=== PATIENT | female | born 1950 | race Caucasian/White ===

== ENCOUNTER 2023-02-27 04:07 | Inpatient (IN) | payer OTHER ==
[~2023-02-27] VITALS: Ht 167.6 cm; Wt 95.5 kg
[2023-02-27] MEDS ORDERED: LOSA50 PO (04:21)
[2023-02-27 04:41] LABS: BASOPHILS ABSOLUTE AUTO 0.07 K/mm3 (0.00-0.23); BASOPHILS PERCENT AUTO 1 % (0-2); EOSINOPHILS ABSOLUTE AUTO 0.11 K/mm3 (0.00-0.68); EOSINOPHILS PERCENT AUTO 2 % (0-6); Hematocrit 37.2 % (33.0-51.0); Hemoglobin 12.5 g/dL (11.5-16.0); IMMATURE GRAN ABSOLUTE AUTO 0.02 K/mm3 (0.00-0.10); IMMATURE GRAN PERCENT AUTO 0 % (0-1); LYMPHOCYTES ABSOLUTE AUTO 1.21 K/mm3 (0.84-5.20); LYMPHOCYTES PERCENT AUTO 17 % (21-46); MONOCYTES ABSOLUTE AUTO 0.86 K/mm3 (0.16-1.47); MONOCYTES PERCENT AUTO 12 % (4-13); Mean Corpuscular HGB 30.2 pg (26.0-34.0); Mean Corpuscular HGB Conc 33.6 g/dL (31.5-36.5); Mean Corpuscular Volume 90 fL (80-100); Mean Platelet Volume 9.6 fL (9.1-12.4); NEUTROPHILS ABSOLUTE AUTO 4.84 K/mm3 (1.96-9.15); NEUTROPHILS PERCENT AUTO 68 % (41-73); Platelet Count 332 K/mm3 (150-400); RDW Coefficient Variation 14.7 % (11.7-14.2); RDW Standard Deviation 48.5 fL (35.1-46.3); Red Blood Cell Count 4.14 M/mm3 (3.80-5.20); White Blood Cell Count 7.11 K/mm3 (4.00-11.30)
[2023-02-27 05:24] LABS: Albumin, Blood 3.4 g/dL (3.4-5.0); Albumin/Globulin Ratio 1.2 (0.8-1.8); Bilirubin, Total 0.4 mg/dL (0.1-1.0); Bun/Creatinine Ratio 31.1 (12.0-20.0); Calcium, Blood 9.2 mg/dL (8.5-10.1); Creatinine, Blood 1.22 mg/dL (0.40-1.00); Globulin, Blood 2.8 g/dL (2.2-4.0); Potassium, Blood 4.6 mmol/L (3.5-5.5); Total Protein, Blood 6.2 g/dL (6.4-8.2)
[2023-02-27 06:34] LABS: Influenza A, PCR NEGATIVE (NEGATIVE); Influenza B, PCR NEGATIVE (NEGATIVE); Resp Syncytial Virus, PCR NEGATIVE (NEGATIVE); SARS-Cov-2 (COVID-19) PCR, MMC NEGATIVE (NEGATIVE)
[2023-02-27 15:57] VITALS: BP 159/98
--- NOTE | 2023-02-27 17:53 | NUR ---
ADMISSION AND SHIFT SUMMARY PATIENT ADMITTED THIS AFTERNOON TO MEDICAL FLOOR. PATIENT ALERT AND INTERACTIVE. VERY TALKATIVE AND NEEDING REDIRECTION TO STAY FOCUSED ON ADMISSION. PATIENT DENIES ANY CHEST PAIN. CONTINUES TO HAVE SOB WITH AMBULATION. PATIENT HAS HEALING SHINGLES LEISIONS ALONG L BREAST LINE. PATIENT TREATED FOR SHINGLES PRIOR TO THIS ADMISSION. PATIENT INDEPENDENT IN THE ROOM. HX OF L KNEE REPLACEMENT AND STIFFNESS IN THAT LEG. PATIENT DOES NOT USE ANY ASSISTIVE DEVICES BUT HAS THEM AVAILABLE IN THE HOME FOR FUTURE NEED. PATIENT LIVES ALONE BUT HAS FAMILY IN THE AREA. PATIENT IS HOPEFUL SHE WILL GET TO GO HOME TOMORROW IF THINGS CONTINUE TO IMPROVE. PATIENT WEARING COMPRESSION STALKINGS FOR BLE EDEMA. PATIENT STATES IT WAS REALLY BAD WHEN SHE CAME IN BUT IS IMPROVING SINCE LASIX DOSE. EDUCATION PROVIDED RELATED TO LOW SODIUM DIET AND FLUID INTAKE.
[2023-02-27 19:51] VITALS: BP 148/96
[2023-02-28 03:57] VITALS: BP 143/92
[2023-02-28 05:34] LABS: Hematocrit 38.3 % (33.0-51.0); Hemoglobin 12.8 g/dL (11.5-16.0); Mean Corpuscular HGB 29.8 pg (26.0-34.0); Mean Corpuscular HGB Conc 33.4 g/dL (31.5-36.5); Mean Corpuscular Volume 89 fL (80-100); Mean Platelet Volume 9.4 fL (9.1-12.4); Platelet Count 297 K/mm3 (150-400); RDW Coefficient Variation 14.7 % (11.7-14.2); RDW Standard Deviation 47.3 fL (35.1-46.3); White Blood Cell Count 5.77 K/mm3 (4.00-11.30)
[2023-02-28 06:05] LABS: Calcium, Blood 9.3 mg/dL (8.5-10.1); Creatinine, Blood 1.26 mg/dL (0.40-1.00); Potassium, Blood 4.3 mmol/L (3.5-5.5)
--- NOTE | 2023-02-28 07:19 | NUR ---
NOC SHIFT SUMMARY: INDEPENDENT. PATIENT WOULD LIKE TO GO HOME TODAY. [facility]. FOLLOW UP IS NEEDED. NEW CHF DIAGNOSIS.
[2023-02-28 07:33] VITALS: BP 144/94
[2023-02-28 15:20] VITALS: BP 115/76
--- NOTE | 2023-02-28 18:15 | NUR ---
SHIFT SUMMARY NO ACUTE CHANGES. PT AOX4 AND INDEPENDENT IN THE ROOM. NO ISSUES THIS SHIFT. WAITING ON THE ECHO RESULTS, PENDING DISCHARGE. THE ECHO WAS NOT READ TODAY. POSSIBLE DC TOMORROW. CALL LIGHT WITHIN REACH, BED IN THE LOWEST POSITION. WILL REPORT TO ONCOMING NURSE.
[2023-02-28 19:49] VITALS: BP 114/68
[2023-03-01 04:26] VITALS: BP 156/94
[2023-03-01 04:47] LABS: Bun/Creatinine Ratio 24.6 (12.0-20.0); Calcium, Blood 9.4 mg/dL (8.5-10.1); Creatinine, Blood 1.3 mg/dL (0.40-1.00); Potassium, Blood 4.8 mmol/L (3.5-5.5)
--- NOTE | 2023-03-01 07:03 | NUR ---
NOC SHIFT SUMMARY NO NEW ISSUES OVERNIGHT. WAITING ON ECHO TO BE READ. POSSIBLE DISCHARGE TO HOME TODAY. INDEPENDENT IN THE ROOM. A&O X4.
[2023-03-01 07:30] VITALS: BP 146/85
[2023-03-01] MEDS ORDERED: FURO40 PO (12:58)
[2023-03-01] MEDS ORDERED: VITAMIN D31000 UNI1 PO (12:58)
[2023-03-01] MEDS ORDERED: JARDIANCE10 MG PO (12:59)
--- NOTE | 2023-03-01 14:45 | NUR ---
DISCHARGE NOTE PT DISCHARGED TO HOME, PICKED UP BY HER GRANDSON. IV REMOVED, TELE RETURNED. DISCHARGE INFORMATION AND PAPERWORK PROVIDED TO THE PT. MEDICATIONS FAXED TO THE PHARMACY OF HER CHOICE. PERSONAL BELONGINGS RETURNED.
== END 2023-03-01 14:30 | disposition home or self-care (01) | DRG 291 ==
LOC: ER 04:07 → ERHOLD 10:56 → MEDS 10:56 → ENPENDDIS 03-01 12:28 → MEDS 03-01 14:30
PROVIDERS: Emergency Medicine; Internal Medicine; ADMIT Internal Medicine
DX: I13.0 Hypertensive heart and chronic kidney disease with heart failure and stage 1 through stage 4 chronic kidney disease, or unspecified chronic kidney disease (principal); I50.33 Acute on chronic diastolic (congestive) heart failure; J96.01 Acute respiratory failure with hypoxia; I27.20 Pulmonary hypertension, unspecified; N18.30 Chronic kidney disease, stage 3 unspecified; R77.8 Other specified abnormalities of plasma proteins; K21.9 Gastro-esophageal reflux disease without esophagitis; Z20.822 Contact with and (suspected) exposure to COVID-19; G62.9 Polyneuropathy, unspecified; Z96.652 Presence of left artificial knee joint; Z79.899 Other long term (current) drug therapy
CPT/HCPCS: 0241U; 36415; 71045; 80048; 80053; 83880; 84484; 85025; 85027; 85379; 93005; 93010; 93306; 96374; 99285-25; A9270; J1650; J1940

== ENCOUNTER 2024-03-30 06:09 | Inpatient (IN) | payer OTHER ==
[~2024-03-30] VITALS: Ht 167.6 cm; Wt 92.7 kg
[2024-03-30] VITALS (7 sets, daily range): BP systolic 107–175; BP diastolic 84–94
[~2024-03-30 06:09] MED LIST: FURO40 PO; JARDIANCE10 MG PO; LOSA50 PO; VITAMIN D31000 UNI1 PO
[2024-03-30] MEDS ORDERED: CeFAZolin Sodium 2,000 MG VIAL ONE (06:29)
[2024-03-30] MEDS ORDERED: NS 100 ML IV ONE (06:29)
[2024-03-30] MEDS ORDERED: Lactated Ringer's 1,000 ML IV ONE ×2 (06:29→07:06)
[2024-03-30] MEDS ORDERED: Tranexamic Acid 100 ML IV ONE ×3 (06:37→16:55)
[2024-03-30] MEDS ORDERED: Acetaminophen 500 MG Tab ONE (06:37)
[2024-03-30] MEDS ORDERED: Chlorhexidine Mouth Care 15 ML UDC MT SCH (06:45)
[2024-03-30] MEDS ORDERED: MULVITA (06:45)
[2024-03-30] MEDS ORDERED: Vitamin B Comple1 EA (06:46)
[2024-03-30] MEDS ORDERED: ZINC15 (06:46)
[2024-03-30] MEDS ORDERED: EPINEPhrine HCl 1 MG/ML 1ML Amp ONE (06:58)
[2024-03-30] MEDS ORDERED: Bupivacaine 0.5% HCl 5 MG/ML 30MLVIAL ONE (06:58)
[2024-03-30] MEDS ORDERED: Dexamethasone Sod Phos 10 MG/ML 1ML VIAL ONE (06:58)
[2024-03-30] MEDS ORDERED: propofoL 20 ML IV ONE (06:59)
[2024-03-30] MEDS ORDERED: Midazolam HCl 1MG / ML 2ML Vial ONE (06:59)
[2024-03-30] MEDS ORDERED: OxyCODONE HCL 10 MG TABCR ONE (07:01)
--- NOTE | 2024-03-30 07:17 | NUR ---
03/30/24 0717 Carol Pop 4X GEL PADS (1 UNDER COCCYX, 1 UNDER EACH SAFETY STRAP, 1 UNDER LEFT ARM) STANDARD FOAM FACEMASK
--- NOTE | 2024-03-30 08:09 | NUR ---
03/30/24 0809 Xiomara Valencia REVIEWED PT CHART AND DUE TO HER SEVERE PULMONARY HYPERTENSION, DID NOT WANT TO GO FORWARD WITH THIS CASE IN AN OUTPATIENT SETTING. ANESTHESIA CHANGED TO WHO WILL PROCEED WITH THIS CASE.
[2024-03-30] MEDS ORDERED: Phenylephrine HCl 100 MCG/ML-NS 10MLSYR (1MG/10ML) ONE (08:12)
[2024-03-30] MEDS ORDERED: Rocuronium Bromide 10 MG/ML 5ML Injection IV ONE (08:46)
[2024-03-30] MEDS ORDERED: Ondansetron HCl 2 MG / ML 2ML Vial ONE (09:23)
[2024-03-30] MEDS ORDERED: Sugammadex Sodium 200 MG/2ML SDV (100 MG/ML) ONE (09:59)
--- NOTE | 2024-03-30 10:47 | NUR ---
03/30/24 Nakita Milton PT DESATTED TO 89% ON RA. THIS RN PUT PT ON 5L VIA NC. PT'S O2 LEVEL AT 96-97%. PT RECEIVED A BLOCK BEFORE THE PRECEDURE. WCTM. VSS. PT DENIES ANY PAIN OR NAUSEA.
[2024-03-30] MEDS ORDERED: Promethazine HCl 25 MG Tab PO PRN (12:15)
[2024-03-30] MEDS ORDERED: DiphenhydrAMINE HCL 25 MG Cap PO PRN (12:15)
[2024-03-30] MEDS ORDERED: HYDROmorphone HCl/Pf 1MG SYR IV PRN (12:15)
[2024-03-30] MEDS ORDERED: Bisacodyl 10 MG Supp PR PRN (12:15)
[2024-03-30] MEDS ORDERED: FLU VACC TS2024-25(6MOS UP)/PF 45 MCG/0.5 ML SYRINGE IM ONE (12:20)
[2024-03-30] MEDS ORDERED: Ondansetron HCl 2 MG / ML 2ML Vial IV PRN (12:20)
[2024-03-30] MEDS ORDERED: Lactated Ringer's 1,000 ML IV SCH (12:20)
[2024-03-30] MEDS ORDERED: OxyCODONE HCL 5 MG TAB PO PRN ×2 (12:20→12:25)
[2024-03-30] MEDS ORDERED: Magnesium Hydroxide Conc 10 ML UDC PO PRN (12:20)
[2024-03-30] MEDS ORDERED: Metoclopramide HCl 5MG / ML 2ML Vial IV PRN (12:20)
[2024-03-30] MEDS ORDERED: Prochlorperazine Edisylate 10 mg Vial IV PRN (12:25)
[2024-03-30] MEDS ORDERED: Ketorolac Tromethamine 15mg Vial IV SCH (13:00)
--- NOTE | 2024-03-30 14:07 | NUR ---
PATIENT TO ROOM AT 1340 FROM [facility] VIA WC. A&O. SBA TO BR, VOIDED 300 CC CLEAR YELLOW URINE. BACK TO BED. DENIES PAIN, NAUSEA, CP,SOB. R ARM IN IMMOBILIZER, MOVES FINGERS WHICH ARE WARM, CIRC CHECKS WNL. ORIENTED TO ROOM, CALL LIGHT. VSS. POLAR PACK IN PLACE TO R SHOULDER. NO C/O.
[2024-03-30] MEDS ORDERED: Acetaminophen 500 MG Tab PO SCH (16:00)
[2024-03-30] MEDS ORDERED: CeFAZolin Sodium 2,000 MG in NS 100 ML IV SCH (16:00)
--- NOTE | 2024-03-30 18:38 | NUR ---
SUMMARY: NO ACUTE CHANGE SINCE POST OP. VSS, A/O. SURGICAL SITE WNL. PT HAS DENIED PAIN. UP TO VOID AND EATING. ABX INFUSED. PT USING CALL LIGHT
[2024-03-30] MEDS ORDERED: Docusate Sodium 100 MG Cap PO SCH (21:00)
[2024-03-31 00:01] VITALS: BP 163/88
[2024-03-31 03:56] VITALS: BP 160/88
[2024-03-31 05:00] LABS: BASOPHILS ABSOLUTE AUTO 0.03 K/mm3 (0.00-0.23); BASOPHILS PERCENT AUTO 0 % (0-2); EOSINOPHILS ABSOLUTE AUTO 0.08 K/mm3 (0.00-0.68); EOSINOPHILS PERCENT AUTO 1 % (0-6); Hematocrit 34.6 % (33.0-51.0); Hemoglobin 10.9 g/dL (11.5-16.0); IMMATURE GRAN ABSOLUTE AUTO 0.02 K/mm3 (0.00-0.10); IMMATURE GRAN PERCENT AUTO 0 % (0-1); LYMPHOCYTES ABSOLUTE AUTO 0.99 K/mm3 (0.84-5.20); LYMPHOCYTES PERCENT AUTO 13 % (21-46); MONOCYTES PERCENT AUTO 11 % (4-13); Mean Corpuscular HGB 29.6 pg (26.0-34.0); Mean Corpuscular HGB Conc 31.5 g/dL (31.5-36.5); Mean Corpuscular Volume 94 fL (80-100); Mean Platelet Volume 9.7 fL (9.1-12.4); NEUTROPHILS ABSOLUTE AUTO 5.73 K/mm3 (1.96-9.15); NEUTROPHILS PERCENT AUTO 75 % (41-73); Platelet Count 272 K/mm3 (150-400); RDW Coefficient Variation 14.2 % (11.7-14.2); RDW Standard Deviation 49.2 fL (35.1-46.3); Red Blood Cell Count 3.68 M/mm3 (3.80-5.20); White Blood Cell Count 7.65 K/mm3 (4.00-11.30)
[2024-03-31 05:21] LABS: Bun/Creatinine Ratio 26.2 (12.0-20.0); Calcium, Blood 9.3 mg/dL (8.5-10.1); Creatinine, Blood 1.6 mg/dL (0.40-1.00); Magnesium, Blood 2.1 mg/dL (1.6-2.4); Potassium, Blood 4.5 mmol/L (3.5-5.5)
--- NOTE | 2024-03-31 05:48 | NUR ---
SHIFT SUMMARY PT POD 0 RIGHT TOTAL SHOULDER, RIGHT ARM IS IN SLING. PT REPORTS SOME RESIDUAL NUMBNESS TO RIGHT SHOULDER. FULL SENSATION IN RIGHT HAND ABLE TO WIGGLE FINGERS. SKIN WARM, CAP REFILL WNL. SURGICAL SITE WITH WOUND GLUE C/D/I. VITALS STABLE. PT AMBULATING, VOIDING AND TOLERATING PO INTAKE. BED IN LOWEST POSITION, CALL LIGHT WITHIN REACH.
--- NOTE | 2024-03-31 07:15 | NUR ---
BEDSIDE REPORT RECIEVED. PT RESTING IN BED, BREATHING UNLABORED. A&O X4, VSS. CALL LIGHT WITHIN REACH.
[2024-03-31 07:30] VITALS: BP 150/82
[2024-03-31] MEDS ORDERED: Empagliflozin 10 MG TAB PO SCH (09:00)
[2024-03-31] MEDS ORDERED: Losartan Potassium 50 MG Tab PO SCH (09:00)
[2024-03-31] MEDS ORDERED: Furosemide 40 MG Tab PO SCH (09:00)
[2024-03-31] MEDS ORDERED: Cholecalciferol 1000 Unit Tablet (=25MCG) PO SCH (09:00)
[2024-03-31] MEDS ORDERED: ACET500 PO (10:34)
[2024-03-31] MEDS ORDERED: OXAYDO5 M1 PO (10:35)
[2024-03-31 11:00] VITALS: BP 128/66
--- NOTE | 2024-03-31 11:30 | NUR ---
DISCHARGED REVIEWED DC INSTRUCTIONS W/PT; VERBALIZED UNDERSTANDING. DC'D IV, CATHETER INTACT. VSS. PT LEFT UNIT IN WC W/POSSESSIONS, POLAR PACK, DC PAPERWORK IN HAND TO RIDE WAITING OUTSIDE.
== END 2024-03-31 11:23 | disposition home or self-care (01) | DRG 483 ==
LOC: ORSCSDS 06:09 → SURS 07:31
PROVIDERS: ADMIT Orthopaedic Surgery
PROC: 0RRJ00Z Replacement of Right Shoulder Joint with Reverse Ball and Socket Synthetic Substitute, Open Approach (ICD-10-PCS; principal; 2024-03-30 07:30)
DX: M19.011 Primary osteoarthritis, right shoulder (principal); M87.011 Idiopathic aseptic necrosis of right shoulder; K21.9 Gastro-esophageal reflux disease without esophagitis; Z79.899 Other long term (current) drug therapy; Z79.84 Long term (current) use of oral hypoglycemic drugs; Z96.659 Presence of unspecified artificial knee joint; Z28.21 Immunization not carried out because of patient refusal
CPT/HCPCS: 36415; 73030; 80048; 83735; 85025; 97110; 97116; 97162; 97165; 97535; A9270; C1713; C1776; J0171; J0690; J1100; J1885; J2250; J2371; J2405; J2704; J7120

== ENCOUNTER → 2024-04-05 | Outpatient (CLI) | payer OTHER ==
[~2024-04-05] MED LIST changes: +ACET500 PO; +MULVITA; +OXAYDO5 M1 PO; +Vitamin B Comple1 EA; +ZINC15
== END ==
LOC: LAB SHORT 13:18 → LAB 13:18
DX: D47.2 Monoclonal gammopathy (principal)
CPT/HCPCS: 88304; 88313

== ENCOUNTER 2024-04-18 06:18 | Emergency (ER) | payer OTHER ==
[~2024-04-18] VITALS: Ht 167.6 cm; Wt 90.7 kg
[2024-04-18 14:56] VITALS: BP 178/109
== END 2024-04-18 14:58 | disposition home or self-care (01) ==
LOC: ER 06:18
DX: M25.561 Pain in right knee (principal); G89.29 Other chronic pain; I11.0 Hypertensive heart disease with heart failure; I50.9 Heart failure, unspecified; Z96.652 Presence of left artificial knee joint; Z96.611 Presence of right artificial shoulder joint; Z74.09 Other reduced mobility; Z79.899 Other long term (current) drug therapy
CPT/HCPCS: 97116; 97162; 97530-CQ; 99283

== ENCOUNTER 2024-06-10 06:44 | Inpatient (IN) | payer OTHER ==
[~2024-06-10] VITALS: Ht 167.6 cm; Wt 87.6 kg
[~2024-06-10 06:44] MED LIST changes: -Vitamin B Comple1 EA; +Vitamin B Comple1 EA PO; -ZINC15; +ZINC15 PO
[2024-06-10 08:53] LABS: BASOPHILS ABSOLUTE AUTO 0.08 K/mm3 (0.00-0.23); BASOPHILS PERCENT AUTO 1 % (0-2); EOSINOPHILS ABSOLUTE AUTO 0.04 K/mm3 (0.00-0.68); EOSINOPHILS PERCENT AUTO 0 % (0-6); Hematocrit 37.8 % (33.0-51.0); Hemoglobin 12.7 g/dL (11.5-16.0); IMMATURE GRAN ABSOLUTE AUTO 0.09 K/mm3 (0.00-0.10); IMMATURE GRAN PERCENT AUTO 1 % (0-1); LYMPHOCYTES ABSOLUTE AUTO 0.58 K/mm3 (0.84-5.20); LYMPHOCYTES PERCENT AUTO 4 % (21-46); MONOCYTES PERCENT AUTO 6 % (4-13); Mean Corpuscular HGB Conc 33.6 g/dL (31.5-36.5); Mean Corpuscular Volume 89 fL (80-100); Mean Platelet Volume 9.7 fL (9.1-12.4); NEUTROPHILS ABSOLUTE AUTO 12.89 K/mm3 (1.96-9.15); NEUTROPHILS PERCENT AUTO 88 % (41-73); Platelet Count 375 K/mm3 (150-400); RDW Coefficient Variation 14.6 % (11.7-14.2); RDW Standard Deviation 47.5 fL (35.1-46.3); Red Blood Cell Count 4.24 M/mm3 (3.80-5.20); White Blood Cell Count 14.58 K/mm3 (4.00-11.30)
[2024-06-10 09:12] LABS: Albumin, Blood 3.1 g/dL (3.4-5.0); Albumin/Globulin Ratio 1.1 (0.8-1.8); Bilirubin, Total 0.6 mg/dL (0.1-1.0); Bun/Creatinine Ratio 26.3 (12.0-20.0); Calcium, Blood 10.6 mg/dL (8.5-10.1); Creatinine, Blood 1.52 mg/dL (0.40-1.00); Globulin, Blood 2.7 g/dL (2.2-4.0); Potassium, Blood 4.7 mmol/L (3.5-5.5); Total Protein, Blood 5.8 g/dL (6.4-8.2)
[2024-06-10 10:21] LABS: International Normalized Ratio 0.99; Prothrombin Time Results 10.6 Sec (9.7-11.5)
[2024-06-10] MEDS ORDERED: FLU VACC TS2024-25(6MOS UP)/PF 45 MCG/0.5 ML SYRINGE IM SCH (13:20)
[2024-06-10] MEDS ORDERED: Acetaminophen 500 MG Tab PO PRN (13:20)
[2024-06-10] MEDS ORDERED: OxyCODONE HCL 5 MG TAB PO PRN (13:20)
[2024-06-10] MEDS ORDERED: Polyethylene Glycol 3350 17 gm PO PRN (13:20)
[2024-06-10] MEDS ORDERED: FentaNYL Citrate 50 MCG/ML 2 ML Injection IV PRN (13:20)
[2024-06-10] MEDS ORDERED: Dose Adjust by Pharmacy XX STA (13:31)
[2024-06-10] MEDS ORDERED: Heparin Sodium 5000 Units/ML 1ML MDV IV ONE (13:35)
[2024-06-10] MEDS ORDERED: Heparin Sodium,Porcine/0.5 NS 500 ML IV SCH (13:35)
[2024-06-10] MEDS ORDERED: BUME1 PO (16:10)
[2024-06-10] MEDS ORDERED: Selenomax200 MCG (16:13)
[2024-06-10] MEDS ORDERED: TURMERIC500 M2 PO (16:14)
--- NOTE | 2024-06-10 18:11 | NUR ---
PT ARRIVED TO THE ROOM AT APPROXIMATELY 1543. PT ALERT/ORIENTED UPON ARRIVAL. PAIN TOLERABLE WHILE AT REST, INCREASED PAIN WITH MOVEMENT. PT EDUCATED TO USE CALL LIGHT, IT WAS PLACED WITHIN REACH.
--- NOTE | 2024-06-10 18:30 | NUR ---
Pt. is awake in bed when she welcomes my visit. Pt. is pleasant. Facilitated a life review and in the process established a measure of rapport. Pt. is unsettled about the plan to address her fracture. Seek to normalize the Pt. experience. Pt. displays evidence of awareness and engagement. Pt. verbalized that her son is also being admitted to this hospital. Prayed with the Pt. Pt. verbalzized gratitude for the spiritual care visit.
--- NOTE | 2024-06-10 18:49 | NUR ---
SHIFT SUMMARY PT IS ON BEDREST R/T DISTAL FEMUR FX. HEPARIN DRIP RUNNING, PHARMACY MANAGING. DR. LOPEZ HAS BEEN CONSULTED AND WILL SEE PT TOMORROW. PT'S PAIN HAS BEEN MINIMAL AND IS MANAGED WHEN AT REST. PT USES CALL LIGHT APPROPRIATELY.
[2024-06-10 19:27] VITALS: BP 126/67
[2024-06-10] MEDS ORDERED: Docusate Sodium/Senna 1 Tab PO SCH (21:00)
[2024-06-10 23:48] VITALS: BP 131/75
[2024-06-11 02:11] LABS: Hematocrit 37.1 % (33.0-51.0); Hemoglobin 11.9 g/dL (11.5-16.0); Mean Corpuscular HGB 29.5 pg (26.0-34.0); Mean Corpuscular HGB Conc 32.1 g/dL (31.5-36.5); Mean Corpuscular Volume 92 fL (80-100); Mean Platelet Volume 9.8 fL (9.1-12.4); Platelet Count 362 K/mm3 (150-400); RDW Coefficient Variation 14.7 % (11.7-14.2); RDW Standard Deviation 49.8 fL (35.1-46.3); Red Blood Cell Count 4.03 M/mm3 (3.80-5.20); White Blood Cell Count 10.79 K/mm3 (4.00-11.30)
[2024-06-11 02:28] LABS: Albumin, Blood 2.9 g/dL (3.4-5.0); Anion Gap 8 mmol/L (3-11); Blood Urea Nitrogen 53 mg/dL (8-24); Bun/Creatinine Ratio 27.3 (12.0-20.0); CO2, Blood 29 mmol/L (21-32); Calcium, Blood 9.8 mg/dL (8.5-10.1); Chloride, Blood 106 mmol/L (98-108); Creatinine, Blood 1.94 mg/dL (0.40-1.00); Glomerular Filtration Rate 27 (60-); Glucose, Blood 122 mg/dL (70-99); Magnesium, Blood 2.3 mg/dL (1.6-2.4); Phosphorus, Blood 4.4 mg/dL (2.5-4.9); Sodium, Blood 138 mmol/L (136-145)
[2024-06-11] MEDS ORDERED: Clarify Drug Order XX ONE (03:05)
[2024-06-11 04:16] VITALS: BP 123/88
--- NOTE | 2024-06-11 04:51 | NUR ---
SHIFT SUMMARY PT A/O X 4 WITH VSS. NO ACUTE CHANGES T/O SHIFT. PLAN FOR ORTHO CONSULT TODAY. MEDICATED X 1 FOR PAIN. IMAGING COMPLETE PER ORDERS. NPO SINCE MIDNIGHT. CHG BATH COMPLETE. IV SL. PT APPEARS TO HAVE SLEPT T/O NIGHT. IS CURRENTLY RESTING IN BED WITH EYES CLOSED, CALL LIGHT IN REACH, AND RESP EVEN/UNLABORED. WILL GIVE REPORT TO ONCOMING RN.
[2024-06-11 07:04] VITALS: BP 119/75
[2024-06-11] MEDS ORDERED: Empagliflozin 10 MG TAB PO SCH (09:00)
[2024-06-11] MEDS ORDERED: Cholecalciferol 1000 Unit Tablet (=25MCG) PO SCH (09:00)
[2024-06-11] MEDS ORDERED: Bumetanide 1 MG Tab PO SCH (09:00)
[2024-06-11] MEDS ORDERED: Losartan Potassium 25 MG Tab PO SCH (09:00)
--- NOTE | 2024-06-11 10:05 | NUR ---
MORNING NOTE THIS RN ASSUMED CARE AT APPROX 0715. PATIENT ALERT AND ORIENTED X4. COMMUNICATING NEEDS EFFECTIVELY. VSS. R FEMUR FX - PPP. DENIES PAIN @ THIS TIME. HEPARIN GTT INFUSING PER EMAR FOR DVT RLE - CALF WARM, +1 EDEMA. MD LOPEZ AT BEDSIDE THIS MORNING FOR CONSULT - NPO AT MIDNIGHT FOR PROCEDURE TOMORROW. PUREWICK IN PLACE FOR BLADDER MANAGEMENT. CALL LIGHT IN REACH.
[2024-06-11] MEDS ORDERED: CeFAZolin Sodium 2,000 MG in NS 100 ML IV SCH (10:30)
[2024-06-11 14:57] VITALS: BP 108/69
--- NOTE | 2024-06-11 17:12 | NUR ---
SHIFT SUMMARY NO ACUTE CHANGES SINCE MORNING NOTE. PATIENT REMAINS ALERT AND ORIENTED X4. COMMUNICATING NEEDS EFFECTIVELY. VSS. SBP 100s-110s. MAP >65. NPO AT MIDNIGHT FOR R FEMUR FX REPAIR. PPP. HEPARIN GTT INFUSING PER EMAR FOR RLE DVT. MANAGING PAIN PER EMAR. PUREWICK AND ATTENDS IN PLACE FOR URINARY MANAGEMENT - CHANGING PRN TO KEEP C/D/I. CALL LIGHT IN REACH. WILL CONTINUE TO MONITOR AND REPORT TO ONCOMING RN.
[2024-06-11 19:18] VITALS: BP 102/61
--- NOTE | 2024-06-11 23:29 | NUR ---
PROVIDER NOTIFIED HOSPTIALIST NOTIFIED OF PATIENTS POOR PO INAKE, NPO STATUS AT MIDNIGHT AND TRENDING RENAL LABS. NO NEW ORDERS OBTAINED.
[2024-06-12] VITALS (25 sets, daily range): BP systolic 79–146; BP diastolic 51–81
--- NOTE | 2024-06-12 05:04 | NUR ---
SHIFT SUMMARY NO ACUTE CHANGES T/O ATHLETIC AGENT. PT A/OX4 WITH VSS. HEPARIN INFUSING PER ORDERS. PT NPO SINCE MIDNIGHT. CHG BATH COMPLETE. PAIN MANAGED PER EMAR, REPOSITIONING AND ICE THERAPY. ON BEDREST, PUREWICK IN PLACE. PLAN FOR SURGERY TODAY. PT CURRENTLY RESTING IN BED WITH EYES CLOSED, RESP EVEN/UNLABORED, AND HAS CALL LIGHT IN REACH. IS ABLE TO MAKE NEEDS KNOWN. WILL GIVE REPORT TO ONCOMING RN.
[2024-06-12 06:08] LABS: BASOPHILS ABSOLUTE AUTO 0.08 K/mm3 (0.00-0.23); BASOPHILS PERCENT AUTO 1 % (0-2); EOSINOPHILS ABSOLUTE AUTO 0.48 K/mm3 (0.00-0.68); EOSINOPHILS PERCENT AUTO 4 % (0-6); Hematocrit 35.1 % (33.0-51.0); Hemoglobin 11.1 g/dL (11.5-16.0); IMMATURE GRAN ABSOLUTE AUTO 0.07 K/mm3 (0.00-0.10); IMMATURE GRAN PERCENT AUTO 1 % (0-1); LYMPHOCYTES ABSOLUTE AUTO 1.16 K/mm3 (0.84-5.20); LYMPHOCYTES PERCENT AUTO 10 % (21-46); MONOCYTES ABSOLUTE AUTO 0.95 K/mm3 (0.16-1.47); MONOCYTES PERCENT AUTO 8 % (4-13); Mean Corpuscular HGB 29.4 pg (26.0-34.0); Mean Corpuscular HGB Conc 31.6 g/dL (31.5-36.5); Mean Corpuscular Volume 93 fL (80-100); Mean Platelet Volume 10.1 fL (9.1-12.4); NEUTROPHILS ABSOLUTE AUTO 9.33 K/mm3 (1.96-9.15); NEUTROPHILS PERCENT AUTO 77 % (41-73); Platelet Count 362 K/mm3 (150-400); RDW Coefficient Variation 14.8 % (11.7-14.2); RDW Standard Deviation 50.8 fL (35.1-46.3); Red Blood Cell Count 3.78 M/mm3 (3.80-5.20); White Blood Cell Count 12.07 K/mm3 (4.00-11.30)
[2024-06-12] MEDS ORDERED: Dose Adjust by Pharmacy XX STA ×2 (06:49→20:40)
[2024-06-12] MEDS ORDERED: Heparin Sodium 5000 Units/ML 1ML MDV IV ONE (06:50)
[2024-06-12] MEDS ORDERED: Bupivacaine 0.5% HCl 5 MG/ML 30MLVIAL ONE (07:42)
[2024-06-12] MEDS ORDERED: Rocuronium Bromide 10 MG/ML 5ML Injection IV ONE (07:51)
[2024-06-12] MEDS ORDERED: Phenylephrine HCl 100 MCG/ML-NS 10MLSYR (1MG/10ML) ONE (07:51)
[2024-06-12] MEDS ORDERED: Ondansetron HCl 2 MG / ML 2ML Vial ONE (07:51)
[2024-06-12] MEDS ORDERED: FentaNYL Citrate 50 MCG/ML 2 ML Injection ONE ×2 (07:51→10:54)
[2024-06-12] MEDS ORDERED: propofoL 20 ML IV ONE (07:51)
[2024-06-12] MEDS ORDERED: Dexamethasone Sod Phos 10 MG/ML 1ML VIAL ONE (07:51)
[2024-06-12] MEDS ORDERED: Lidocaine HCl 2% 20 ML MDV ONE (08:36)
[2024-06-12] MEDS ORDERED: Sugammadex Sodium 200 MG/2ML SDV (100 MG/ML) ONE (09:23)
[2024-06-12] MEDS ORDERED: HYDROmorphone HCl/Pf 1MG SYR ONE ×2 (09:55→10:54)
[2024-06-12] MEDS ORDERED: Droperidol 5 mg/2 ml Vial IV PRN (10:05)
[2024-06-12] MEDS ORDERED: HYDROmorphone HCl/Pf 1MG SYR IV PRN (10:10)
[2024-06-12] MEDS ORDERED: ePHEDrine Sulfate 50 MG/ML 1ML Injection IV PRN (10:10)
[2024-06-12] MEDS ORDERED: Labetalol HCL 5 MG/ML 4ML Injection (Single Dose) IV PRN (10:10)
[2024-06-12] MEDS ORDERED: Acetaminophen 500 MG Tab PO PRN (10:10)
[2024-06-12] MEDS ORDERED: FentaNYL Citrate 50 MCG/ML 2 ML Injection IV PRN ×3 (10:10)
[2024-06-12] MEDS ORDERED: Lactated Ringer's 1,000 ML IV ONE (11:01)
--- NOTE | 2024-06-12 12:10 | NUR ---
PACU TO 218 PT BROUGHT BACKTO HER ROOM 218 FROM PACU AFTER RECOVERING, RADHA WRAP RLE FROM HER TOES TO HER POXIMAL THIGH, DISTAL CIRCULATION INTACT, PATIENT AWAKE AND ALERT TALKING WITH STAFF, ANSWERS QUESTIONS APPROPRIATELY, ON 3L NC, PROVIDED WITH AN IS WIHT EDUCATION ON USE, POST OP VITALS STARTED. VERIFIED WEIGHT BEARING STATUS AND HEPARIN DRIP RESTARTING NOW AFTER NOTIFYING PHARMACY.
--- NOTE | 2024-06-12 15:44 | NUR ---
SHIFT SUMMARY POD0 R KNEE DISTAL RODDING, A/OX4, VSS, TOLERATING PO, PAIN MANAGED PER EMAR, CALLS APPROPRIATELY, WORKED WITH THERAPY. NO ACUTE EVENTS THIS SHIFT, [facility]
[2024-06-12] MEDS ORDERED: CeFAZolin Sodium 2,000 MG in NS 100 ML IV SCH (17:00)
[2024-06-13] MEDS ORDERED: Clarify Drug Order XX ONE (04:10)
[2024-06-13 04:14] VITALS: BP 111/69
--- NOTE | 2024-06-13 06:21 | NUR ---
SHIFT SUMMARY POD 1 S/P RIGHT KNEE DISTAL RODDING. DRESSING/RADHA WRAP CDI, NO DRAINAGE NOTED. ICE THERAPY APPLIED TOLERATED. PAIN MANAGED PER EMAR, ICE THERAPY AND REPOSITIONING. PT CAILIN PO INTAKE. DEJESUS REMOVED AT THIS TIME BY TUBE WRAPPER, AWAITING POST VOID. HEPARIN INFUSING DIRECTED BY PHARMACY. ABX INFUSED PER ORDERS. PT REPORTS SLEEPING WELL T/O NIGHT. PLAN TO WORK WITH THERAPY TODAY. WILL GIVE REPORT TO ONCOMING RN.
[2024-06-13 07:13] VITALS: BP 118/79
[2024-06-13] MEDS ORDERED: Dose Adjust by Pharmacy XX STA ×2 (09:48→15:51)
[2024-06-13 09:51] LABS: BASOPHILS ABSOLUTE AUTO 0.03 K/mm3 (0.00-0.23); BASOPHILS PERCENT AUTO 0 % (0-2); EOSINOPHILS ABSOLUTE AUTO 0.22 K/mm3 (0.00-0.68); EOSINOPHILS PERCENT AUTO 2 % (0-6); Hematocrit 34.1 % (33.0-51.0); Hemoglobin 10.8 g/dL (11.5-16.0); IMMATURE GRAN ABSOLUTE AUTO 0.06 K/mm3 (0.00-0.10); IMMATURE GRAN PERCENT AUTO 1 % (0-1); LYMPHOCYTES ABSOLUTE AUTO 1.07 K/mm3 (0.84-5.20); LYMPHOCYTES PERCENT AUTO 9 % (21-46); MONOCYTES ABSOLUTE AUTO 0.76 K/mm3 (0.16-1.47); MONOCYTES PERCENT AUTO 7 % (4-13); Mean Corpuscular HGB 29.4 pg (26.0-34.0); Mean Corpuscular HGB Conc 31.7 g/dL (31.5-36.5); Mean Corpuscular Volume 93 fL (80-100); NEUTROPHILS ABSOLUTE AUTO 9.38 K/mm3 (1.96-9.15); NEUTROPHILS PERCENT AUTO 81 % (41-73); Platelet Count 371 K/mm3 (150-400); RDW Coefficient Variation 14.6 % (11.7-14.2); RDW Standard Deviation 49.7 fL (35.1-46.3); Red Blood Cell Count 3.67 M/mm3 (3.80-5.20); White Blood Cell Count 11.52 K/mm3 (4.00-11.30)
[2024-06-13 14:51] VITALS: BP 94/64
--- NOTE | 2024-06-13 16:56 | NUR ---
SHIFT SUMMARY PT HAS DONE WELL TODAY. VOIDING USING BSC, HAD BM, PAIN WELL CONTROLLED. PLEASANT & COOPERATIVE. UP IN CHAIR FOR MOST OF SHIFT. RADHA WRAP w/ NO DRNG.
[2024-06-13] MEDS ORDERED: Apixaban 5 MG Tab PO SCH (19:00)
[2024-06-13 20:02] VITALS: BP 139/76
[2024-06-14 04:07] VITALS: BP 145/77
[2024-06-14 05:57] LABS: BASOPHILS PERCENT AUTO 1 % (0-2); EOSINOPHILS ABSOLUTE AUTO 0.59 K/mm3 (0.00-0.68); EOSINOPHILS PERCENT AUTO 7 % (0-6); Hematocrit 33.7 % (33.0-51.0); Hemoglobin 10.7 g/dL (11.5-16.0); IMMATURE GRAN ABSOLUTE AUTO 0.06 K/mm3 (0.00-0.10); IMMATURE GRAN PERCENT AUTO 1 % (0-1); LYMPHOCYTES ABSOLUTE AUTO 1.02 K/mm3 (0.84-5.20); LYMPHOCYTES PERCENT AUTO 12 % (21-46); MONOCYTES ABSOLUTE AUTO 0.68 K/mm3 (0.16-1.47); MONOCYTES PERCENT AUTO 8 % (4-13); Mean Corpuscular HGB 29.4 pg (26.0-34.0); Mean Corpuscular HGB Conc 31.8 g/dL (31.5-36.5); Mean Corpuscular Volume 93 fL (80-100); Mean Platelet Volume 10.2 fL (9.1-12.4); NEUTROPHILS ABSOLUTE AUTO 6.23 K/mm3 (1.96-9.15); NEUTROPHILS PERCENT AUTO 72 % (41-73); Platelet Count 403 K/mm3 (150-400); RDW Coefficient Variation 14.6 % (11.7-14.2); RDW Standard Deviation 49.4 fL (35.1-46.3); Red Blood Cell Count 3.64 M/mm3 (3.80-5.20); White Blood Cell Count 8.68 K/mm3 (4.00-11.30)
--- NOTE | 2024-06-14 06:08 | NUR ---
SHIFT SUMMARY POD 2 S/P RIGHT KNEE RODDING. DRESSING AND RADHA WRAP CDI. ICE APPLIED TOLERATED. PAIN WELL CONTROLLED BY PO MEDICATION. IS A/OX4. VSS. NOW ON ORAL BLOOD THINNER, HEPARIN D/C PER ORDER. IS VOIDING, USING BSC. IV SL. PLAN TO WORK WITH THERAPY TODAY. WILL GIVE REPORT TO ARELY GARCIA
[2024-06-14 06:18] LABS: Bun/Creatinine Ratio 37.6 (12.0-20.0); Calcium, Blood 9.9 mg/dL (8.5-10.1); Creatinine, Blood 1.49 mg/dL (0.40-1.00); Potassium, Blood 4.8 mmol/L (3.5-5.5)
[2024-06-14 07:26] VITALS: BP 117/71
--- NOTE | 2024-06-14 13:33 | NUR ---
REPORT TO [facility]
--- NOTE | 2024-06-14 13:51 | NUR ---
DC TO [facility] VIA w/ TRANSPORT & BELONGINGS
== END 2024-06-14 13:49 | DRG 481 ==
LOC: ER 06:44 → SURS 13:16
PROVIDERS: Internal Medicine; Orthopaedic Surgery; Student in an Organized Health Care Education/Training Program; ADMIT Internal Medicine
PROC: 0QSB04Z Reposition Right Lower Femur with Internal Fixation Device, Open Approach (ICD-10-PCS; principal; 2024-06-12 08:00)
DX: S72.461A Displaced supracondylar fracture with intracondylar extension of lower end of right femur, initial encounter for closed fracture (principal); I13.0 Hypertensive heart and chronic kidney disease with heart failure and stage 1 through stage 4 chronic kidney disease, or unspecified chronic kidney disease; N17.9 Acute kidney failure, unspecified; I82.411 Acute embolism and thrombosis of right femoral vein; I82.451 Acute embolism and thrombosis of right peroneal vein; I82.441 Acute embolism and thrombosis of right tibial vein; N18.30 Chronic kidney disease, stage 3 unspecified; K21.9 Gastro-esophageal reflux disease without esophagitis; I50.9 Heart failure, unspecified; Z98.42 Cataract extraction status, left eye; Z98.41 Cataract extraction status, right eye; Z96.652 Presence of left artificial knee joint; Z79.899 Other long term (current) drug therapy; G62.9 Polyneuropathy, unspecified; M17.11 Unilateral primary osteoarthritis, right knee
CPT/HCPCS: 36415; 71260; 73552; 73562-RT; 73700; 80048; 80053; 80069; 83735; 85025; 85027; 85520; 85610; 86850; 86900; 86901; 93971; 94760; 97110; 97162; 97530; 99285-25; A9270; J0690; J1100; J1171; J1644; J2371; J2405; J2704; J3010; J7120; Q9967

== ENCOUNTER 2024-10-05 12:09 | Emergency (ER) | payer OTHER ==
[~2024-10-05] VITALS: Ht 167.6 cm; Wt 83.9 kg
[~2024-10-05 12:09] MED LIST changes: +BUME1 PO; +Selenomax200 MCG; +TURMERIC500 M2 PO
[2024-10-05 12:15] VITALS: BP 138/63
[2024-10-05] MEDS ORDERED: Lidocaine/Tetracaine/Epinephr 3 ML GEL SYRINGE TOP ONE (16:00)
[2024-10-05] MEDS ORDERED: Diphth,Pertuss(Acell),Tet Vac 0.5 ML VIAL IM ONE (17:30)
== END 2024-10-05 17:57 | disposition home or self-care (01) ==
LOC: ER 12:09
DX: S81.012A Laceration without foreign body, left knee, initial encounter (principal); I11.0 Hypertensive heart disease with heart failure; I50.9 Heart failure, unspecified; Z96.651 Presence of right artificial knee joint; W18.30XA Fall on same level, unspecified, initial encounter; Z79.899 Other long term (current) drug therapy
CPT/HCPCS: 12034; 73560-LT; 90471; 90715; 99283-25

== ENCOUNTER 2024-10-07 07:57 | Emergency (ER) | payer OTHER ==
[~2024-10-07] VITALS: Ht 167.6 cm; Wt 83.9 kg
[2024-10-07] MEDS ORDERED: ELIQUIS2.5 MG (08:13)
[2024-10-07] MEDS ORDERED: Ketorolac Tromethamine 15mg Vial IV ONE (09:00)
[2024-10-07] MEDS ORDERED: FentaNYL Citrate 50 MCG/ML 2 ML Injection IV ONE (09:05)
[2024-10-07] MEDS ORDERED: Acetaminophen 500 MG Tab PO ONE (09:05)
[2024-10-07 10:21] LABS: BASOPHILS ABSOLUTE AUTO 0.05 K/mm3 (0.00-0.23); BASOPHILS PERCENT AUTO 0 % (0-2); EOSINOPHILS ABSOLUTE AUTO 0.19 K/mm3 (0.00-0.68); EOSINOPHILS PERCENT AUTO 2 % (0-6); Hematocrit 26.3 % (33.0-51.0); Hemoglobin 7.9 g/dL (11.5-16.0); IMMATURE GRAN ABSOLUTE AUTO 0.04 K/mm3 (0.00-0.10); IMMATURE GRAN PERCENT AUTO 0 % (0-1); LYMPHOCYTES ABSOLUTE AUTO 1.09 K/mm3 (0.84-5.20); LYMPHOCYTES PERCENT AUTO 9 % (21-46); MONOCYTES ABSOLUTE AUTO 0.88 K/mm3 (0.16-1.47); MONOCYTES PERCENT AUTO 8 % (4-13); Mean Corpuscular HGB 25.6 pg (26.0-34.0); Mean Corpuscular Volume 85 fL (80-100); Mean Platelet Volume 9.3 fL (9.1-12.4); NEUTROPHILS ABSOLUTE AUTO 9.36 K/mm3 (1.96-9.15); NEUTROPHILS PERCENT AUTO 81 % (41-73); Platelet Count 390 K/mm3 (150-400); RDW Coefficient Variation 15.3 % (11.7-14.2); RDW Standard Deviation 47.3 fL (35.1-46.3); Red Blood Cell Count 3.09 M/mm3 (3.80-5.20); White Blood Cell Count 11.61 K/mm3 (4.00-11.30)
[2024-10-07 10:30] VITALS: BP 168/84
[2024-10-07 10:34] LABS: International Normalized Ratio 1.07; Prothrombin Time Results 11.4 Sec (9.7-11.5)
[2024-10-07 10:43] LABS: Albumin, Blood 3.1 g/dL (3.4-5.0); Albumin/Globulin Ratio 1.2 (0.8-1.8); Bilirubin, Total 0.4 mg/dL (0.1-1.0); Calcium, Blood 9.9 mg/dL (8.5-10.1); Creatinine, Blood 1.85 mg/dL (0.40-1.00); Globulin, Blood 2.5 g/dL (2.2-4.0); Potassium, Blood 4.6 mmol/L (3.5-5.5); Total Protein, Blood 5.6 g/dL (6.4-8.2)
== END 2024-10-07 10:46 | disposition short-term general hospital (02) ==
LOC: ER 07:57
PROVIDERS: Student in an Organized Health Care Education/Training Program
DX: T84.124A Displacement of internal fixation device of right femur, initial encounter (principal); K21.9 Gastro-esophageal reflux disease without esophagitis; I11.0 Hypertensive heart disease with heart failure; I50.9 Heart failure, unspecified; Z79.899 Other long term (current) drug therapy
CPT/HCPCS: 36415; 73552; 73562-RT; 80053; 85025; 85610; 93005; 93010; 96374; 99284-25; A9270; J1885